=== PATIENT | female | born 1975 | race Caucasian/White ===

== ENCOUNTER 2017-05-06 18:02 | Emergency (ER) | payer OTHER ==
[~2017-05-06] VITALS: Ht 160 cm; Wt 115.0 kg
[~2017-05-06 18:02] MED LIST: CIPR750T10 PO; MEDR10 PO; METO10TA PO; PHEN12.5 PO; PROT40TA PO; Z.0.BCPILL PO; ZOFR4TAB3 SL
[2017-05-06 18:07] VITALS: BP 147/89; PULSE 84; RESP 20; TEMP 98.7; O2SAT 99
--- NOTE | 2017-05-06 18:21 | PD ---
Physical Exam Date Seen by Provider: May 06, 2017 Time Seen by Provider: 18:19 Data Data Last Documented VS Vital Signs Date Time Temp Pulse Resp B/P (MAP) Pulse Ox O2 Delivery O2 Flow Rate FiO2 05/06/17 18:07 98.7 84 20 147/89 (108) 99 Room Air MDM Supervised Visit with TIAN: No Narrative Course 42 YO F with PMH of MRSA with complaint of swelling, pain and redness under the neck x 3 days. ++ F/C/ N. Tried to squeeze the wounds at home. Vitals reviewed. Patient seen in triage, awaiting bed placement. Cony Elias May 06, 2017 18:21
[2017-05-06] MEDS ORDERED: ONDANSETRON HCL 4 MG/2 ML VIAL IV ONE (19:00)
[2017-05-06] MEDS ORDERED: MORPHINE SULFATE 8 MG/ML INJ IV PUSH ONE (19:00)
--- NOTE | 2017-05-06 19:32 | PD ---
HPI Chief Complaint: Skin Problem Time Seen by Provider: 18:50 Travel History International Travel<30 days: No Contact w/Intl Traveler<30days: No Traveled to known affect area: No History of Present Illness HPI Patient is a 42-year-old female presenting to emergency for evaluation of a skin infection to her neck. Patient states that she noticed it with 2 small pimples to her chin/neck, a cup progressively larger more swollen and then a third area erupted to her left lower jaw. Patient states it's painful reporting her pain as a 9 and 10. She states it's throbbing and aching in nature. Patient reports that she shaves her chin because she has a hormone abnormality and thinks this is what caused the initial abscesses. She denies any documented fevers but has felt chills and has had sweats. She has also felt nauseated has vomited several times. Patient reports a history of irritable bowel, anxiety, gastroparesis, cyclic vomiting syndrome. She is followed by Dr. Angel for her GI issues. PFSH Past Medical History Anemia: Yes Anxiety: Yes Endocrine: Yes Gastrointestinal Disorders: Yes (gastritis, gastroparesis, cyclic vomiting syndrome, irritable bowel) GERD: Yes Immunizations Current: Yes ?: Not Social History Alcohol Use: No Tobacco Use: No Substance Use: No Allergies-Medications (Allergen,Severity, Reaction): Coded Allergies: sulfamethoxazole (Unverified Allergy, Unknown, 04/11/17) trimethoprim (Unverified Allergy, Unknown, 04/11/17) Reported Meds & Prescriptions Reported Meds & Active Scripts Active Reglan (Metoclopramide HCl) 10 Mg Tab 10 Mg PO Q6H PRN NAUSEA AND VOMITING Provera 10 Mg Tab (Medroxyprogesterone Acetate) 10 Mg Tab 10 Mg PO DAILY 14 Days Ciprofloxacin 750 Mg Tab (Ciprofloxacin) 750 Mg Tab 750 Mg PO BID 7 Days Zofran ODT (Ondansetron HCl) 4 Mg Tab 4 Mg SL Q6H PRN FOR NAUSEA/VOMITING Phenergan (Promethazine HCl) 12.5 Mg Tab 12.5 Mg PO Q6 PRN FOR NAUSEA Zofran ODT (Ondansetron HCl) 4 Mg Tab 4 Mg SL Q6 FOR NAUSEA/VOMITING Reported Reglan (Metoclopramide HCl) 10 Mg Tab 10 Mg PO QID Protonix (Pantoprazole Sodium) 40 Mg Tab 40 Mg PO DAILY Control Pills (Miscellaneous Medication) Tab 1 Tab PO DAILY Review of Systems Except as stated in HPI: all other systems reviewed are Neg General / Constitutional: Positive: Fever, Chills Gastrointestinal: Positive: Nausea, Vomiting Skin: Positive Rash, Positive Lumps, Positive Change in Pigmentation, Positive Lesions Physical Exam Narrative GENERAL: Obese, well-developed, alert female. SKIN: Warm and dry.10x7cm area of induration to left lower cheek/jaw, moderately tender to palpation, no fluctuance noted, mildly erythematous. There are 2 additional areas of erythema and induration to neck measuring 3 x 3 cm. HEAD: Atraumatic. Normocephalic. EYES: Pupils equal and round. No scleral icterus. No injection or drainage. ENT: No nasal bleeding or discharge. Mucous membranes pink and moist. NECK: Trachea midline. No JVD. CARDIOVASCULAR: Regular rate and rhythm. RESPIRATORY: No accessory muscle use. Clear to auscultation. Breath sounds equal bilaterally. GASTROINTESTINAL: Abdomen soft, non-tender, nondistended. Hepatic and splenic margins not palpable. MUSCULOSKELETAL: Extremities without clubbing, cyanosis, or edema. No obvious deformities. NEUROLOGICAL: Awake and alert. No obvious cranial nerve deficits. Motor grossly within normal limits. Five out of 5 muscle strength in the arms and legs. Normal speech. PSYCHIATRIC: Appropriate mood and affect; insight and judgment normal. Data Data Last Documented VS Vital Signs Date Time Temp Pulse Resp B/P (MAP) Pulse Ox O2 Delivery O2 Flow Rate FiO2 05/06/17 19:30 98 05/06/17 18:07 98.7 84 20 147/89 (108) Room Air Orders Orders Complete Blood Count With Diff (05/06/17 18:57) Comprehensive Metabolic Panel (05/06/17 18:57) Lactic Acid Sepsis Protocol (05/06/17 18:57) Blood Culture (05/06/17 18:57) Wound Culture And Gram Stain (05/06/17 18:57) Blood Glucose (05/06/17 18:57) Ecg Monitoring (05/06/17 18:57) Iv Access Insert/Monitor (05/06/17 18:57) Oximetry (05/06/17 18:57) Oxygen Administration (05/06/17 18:57) Morphine Inj (Morphine Inj) (05/06/17 19:00) Ondansetron Inj (Zofran Inj) (05/06/17 19:00) Ct Facial Bones W Iv Contrast (05/06/17 ) Ed Urine Pregnancytest Poc (05/06/17 19:14) Ketorolac Inj (Toradol Inj) (05/06/17 20:00) Prochlorperazine Inj (Compazine Inj) (05/06/17 20:00) Urinalysis - C+S If Indicated (05/06/17 20:01) Potassium Chlor 20 Meq Premix (Kcl 20 Me (05/06/17 20:30) Potassium Chloride (Kcl) (05/06/17 20:30) Iohexol 350 Inj (Omnipaque 350 Inj) (05/06/17 20:28) Clindamycin Inj (Cleocin Inj) (05/06/17 21:00) Sodium Chlor 0.9% 1000 Ml Inj (Ns 1000 M (05/06/17 21:00) Urine Culture (05/06/17 20:10) Ceftriaxone Inj (Rocephin Inj) (05/06/17 21:15) Admit Order (Ed Use Only) (05/06/17 21:29) Labs Laboratory Tests Test 05/06/17 19:30 05/06/17 20:10 White Blood Count 19.5 TH/MM3 Red Blood Count 5.12 MIL/MM3 Hemoglobin 14.9 GM/DL Hematocrit 43.4 % Mean Corpuscular Volume 84.7 FL Mean Corpuscular Hemoglobin 29.1 PG Mean Corpuscular Hemoglobin Concent 34.4 % Red Cell Distribution Width 13.6 % Platelet Count 258 TH/MM3 Mean Platelet Volume 9.0 FL Neutrophils (%) (Auto) 84.9 % Lymphocytes (%) (Auto) 8.7 % Monocytes (%) (Auto) 6.1 % Eosinophils (%) (Auto) 0.0 % Basophils (%) (Auto) 0.3 % Neutrophils # (Auto) 16.6 TH/MM3 Lymphocytes # (Auto) 1.7 TH/MM3 Monocytes # (Auto) 1.2 TH/MM3 Eosinophils # (Auto) 0.0 TH/MM3 Basophils # (Auto) 0.1 TH/MM3 CBC Comment DIFF FINAL Differential Comment Blood Urea Nitrogen 18 MG/DL Creatinine 0.64 MG/DL Random Glucose 127 MG/DL Total Protein 8.6 GM/DL Albumin 4.0 GM/DL Calcium Level 9.4 MG/DL Alkaline Phosphatase 93 U/L Aspartate Amino Transf (AST/SGOT) 42 U/L Alanine Aminotransferase (ALT/SGPT) 77 U/L Total Bilirubin 1.2 MG/DL Sodium Level 133 MEQ/L Potassium Level 2.8 MEQ/L Chloride Level 96 MEQ/L Carbon Dioxide Level 22.0 MEQ/L Anion Gap 15 MEQ/L Estimat Glomerular Filtration Rate 102 ML/MIN Lactic Acid Level 1.2 mmol/L Urine Color YELLOW Urine Turbidity HAZY Urine pH 6.5 Urine Specific [place] 1.033 Urine Protein 300 mg/dL Urine Glucose (UA) NEG mg/dL Urine Ketones 150 mg/dL Urine Occult Blood MOD Urine Nitrite NEG Urine Bilirubin NEG Urine Urobilinogen 4.0 MG/DL Urine Leukocyte Esterase SMALL Urine RBC 14 /hpf Urine WBC 12 /hpf Urine Squamous Epithelial Cells 9 /hpf Urine Bacteria MANY /hpf Urine Mucus MANY /lpf Microscopic Urinalysis Comment CULTURE INDICATED MDM Medical Decision Making Medical Screen Exam Complete: Yes Emergency Medical Condition: Yes Interpretation(s) Last Impressions Maxillofacial CT 05/06/17 0000 Signed Impressions: Service Date/Time: Saturday, May 06, 2017 20:23 - CONCLUSION: 1. Cutaneous and subcutaneous inflammatory process along the right side of the mandible extending into the submental region characteristic of cellulitis. 2. Small nodular densities are identified in the inflammatory process which may represent small developing abscesses however large mature abscess is not identified. 3. No other significant abnormalities are Karlos Ramos MD Vital Signs Date Time Temp Pulse Resp B/P (MAP) Pulse Ox O2 Delivery O2 Flow Rate FiO2 05/06/17 18:07 98.7 84 20 147/89 (108) 99 Room Air Laboratory Tests Test 05/06/17 19:30 White Blood Count 19.5 TH/MM3 Red Blood Count 5.12 MIL/MM3 Hemoglobin 14.9 GM/DL Hematocrit 43.4 % Mean Corpuscular Volume 84.7 FL Mean Corpuscular Hemoglobin 29.1 PG Mean Corpuscular Hemoglobin Concent 34.4 % Red Cell Distribution Width 13.6 % Platelet Count 258 TH/MM3 Mean Platelet Volume 9.0 FL Neutrophils (%) (Auto) 84.9 % Lymphocytes (%) (Auto) 8.7 % Monocytes (%) (Auto) 6.1 % Eosinophils (%) (Auto) 0.0 % Basophils (%) (Auto) 0.3 % Neutrophils # (Auto) 16.6 TH/MM3 Lymphocytes # (Auto) 1.7 TH/MM3 Monocytes # (Auto) 1.2 TH/MM3 Eosinophils # (Auto) 0.0 TH/MM3 Basophils # (Auto) 0.1 TH/MM3 CBC Comment DIFF FINAL Differential Comment Blood Urea Nitrogen 18 MG/DL Creatinine 0.64 MG/DL Random Glucose 127 MG/DL Total Protein 8.6 GM/DL Albumin 4.0 GM/DL Calcium Level 9.4 MG/DL Alkaline Phosphatase 93 U/L Aspartate Amino Transf (AST/SGOT) 42 U/L Alanine Aminotransferase (ALT/SGPT) 77 U/L Total Bilirubin 1.2 MG/DL Sodium Level 133 MEQ/L Potassium Level 2.8 MEQ/L Chloride Level 96 MEQ/L Carbon Dioxide Level 22.0 MEQ/L Anion Gap 15 MEQ/L Estimat Glomerular Filtration Rate 102 ML/MIN Lactic Acid Level 1.2 mmol/L Differential Diagnosis Folliculitis versus impetigo versus abscess versus cellulitis versus other Narrative Course Patient is a 42-year-old female presenting for evaluation of facial abscesses. Patient's vital signs are stable, labs and imaging ordered and pending. Morphine and Zofran ordered for nausea and pain. Patient reports a history of cyclic vomiting syndrome as well as gastroparesis and irritable bowel syndrome. She has had nausea and vomiting since Monday, it preceded the skin infection. Zofran did not completely alleviate the nausea, Compazine was ordered. Patient requested more pain medication and she was given Toradol. CBC with white count of 19.5 with left shift, clindamycin 900 mg IV 1 dose ordered Chemistry with potassium 2.8, oral and IV replacement ordered Lactic acid 1.[address] read by the radiologist shows cutaneous and subcutaneous avoid her process along the right side of the mandible extending to the submental region characteristic of cellulitis. There are small nodular densities identified in the inflammatory process which may represent small developing abscesses however large immature abscess is not identified. Urinalysis consistent with a UTI, rocephin 1gram IV X 1 dose ordered. Pt will be admitted for IV abx and to monitor airway. Discussed plan of care with my attending. Dr. Poole accepted admit. Orders placed. Diagnosis Primary Impression: Facial cellulitis Additional Impressions: UTI (urinary tract infection) Qualified Codes: N39.0 - Urinary tract infection, site not specified; R31.9 - Hematuria, unspecified Hypokalemia Nausea and vomiting Qualified Codes: R11.2 - Nausea with vomiting, unspecified Admitting Information Admitting Physician Requests: Admit Condition: Stable Brenda Carbajal [employer] DES[employer] May 06, 2017 19:31
[2017-05-06 19:52] LABS: AUTOMATED NEUTROPHIL # 16.6 TH/MM3 (1.8-7.7); BASOPHIL # 0.1 TH/MM3 (0-0.2); BASOPHIL % 0.3 % (0.0-2.0); HEMATOCRIT 43.4 % (35.0-46.0); HEMO FLAGS DIFF FINAL; LYMPH % 8.7 % (9.0-44.0); LYMPHOCYTE # 1.7 TH/MM3 (1.0-4.8); MEAN CELL VOLUME 84.7 FL (80.0-100.0); MEAN CORPUSCULAR HEMOGLOBIN 29.1 PG (27.0-34.0); MEAN CORPUSCULAR HGB CONC 34.4 % (32.0-36.0); MONO % 6.1 % (0.0-8.0); NEUT % 84.9 % (16.0-70.0); PLATELET COUNT 258 TH/MM3 (150-450); RED BLOOD COUNT 5.12 MIL/MM3 (4.00-5.30); RED CELL DISTRIBUTION WIDTH 13.6 % (11.6-17.2); WHITE BLOOD COUNT 19.5 TH/MM3 (4.0-11.0)
[2017-05-06] MEDS ORDERED: PROCHLORPERAZINE INJ 10 MG/2 ML VIAL IV PUSH ONE (20:00)
[2017-05-06] MEDS ORDERED: KETOROLAC TROMETHAMINE 30 MG/ML (IVP) VIAL IV PUSH ONE (20:00)
[2017-05-06 20:10] LABS: ALKALINE PHOSPHATASE 93 U/L (45-117); ALT (GPT) 77 U/L (10-53); ANION GAP 15 MEQ/L (5-15); AST (GOT) 42 U/L (15-37); BLOOD UREA NITROGEN 18 MG/DL (7-18); CHLORIDE 96 MEQ/L (98-107); GLOMERULAR FILTRATION RATE 102 ML/MIN (>89); SODIUM (NA) 133 MEQ/L (136-145); TOTAL BILIRUBIN ADULT 1.2 MG/DL (0.2-1.0)
[2017-05-06 20:15] LABS: POTASSIUM 2.8 MEQ/L (3.5-5.1)
[2017-05-06] MEDS ORDERED: IOHEXOL 350 MG/ML 10 ML VIAL (for RAD DIAG) IVCONTRAST ONE (20:28)
[2017-05-06] MEDS ORDERED: POTASSIUM CHLOR 20 MEQ PREMIX 100 ML IV ONE (20:30)
[2017-05-06] MEDS ORDERED: POTASSIUM CHLORIDE 10 MEQ CONTROLLED RELEASE TAB PO ONE (20:30)
--- NOTE | 2017-05-06 20:45 | RADRPT ---
EXAM DATE/TIME: 05/06/2017 20:23 [facility] COMPARISON: No previous studies available for comparison. INDICATIONS : Right sided neck abscess x3 days with fever and nausea. IV CONTRAST: 70 cc Omnipaque 350 (iohexol) IV RADIATION DOSE: 55.90 CTDIvol (mGy) MEDICAL HISTORY : Gastroesophageal reflux disease. SURGICAL HISTORY : None. ENCOUNTER: Initial ACUITY: 3 days PAIN SCALE: 10/10 LOCATION: Right neck TECHNIQUE: Volumetric scanning of the facial bones was performed. Using automated exposure control and adjustme nt of the mA and/or kV according to patient size, radiation dose was kept as low as reasonably achiev able to obtain optimal diagnostic quality images. DICOM format image data is available electronicall y for review and comparison. FINDINGS: Soft tissue inflammatory process is identified along the right side of the mandible extending caudall y into the submental region. Small nodular densities ranging in size up to 11 mm are identified withi n the subcutaneous fat bilaterally. Submental lymph nodes ranging in size up to 8 mm are noted. Soft tissue structures of the neck are otherwise unremarkable. Sinuses are well aerated and clear. Osseous structures are intact CONCLUSION: 1. Cutaneous and subcutaneous inflammatory process along the right side of the mandible extending int o the submental region characteristic of cellulitis. 2. Small nodular densities are identified in the inflammatory process which may represent small devel oping abscesses however large mature abscess is not identified. 3. No other significant abnormalities are Karlos Ramos MD on May 06, 2017 at 20:38 Board Certified Radiologist. This report was verified electronically.
[2017-05-06] MEDS ORDERED: SODIUM CHLOR 0.9% 1000 ML INJ 1,000 ML IV ONE (21:00)
[2017-05-06] MEDS ORDERED: CLINDAMYCIN INJ 900 MG in SODIUM CHLORIDE 0.9% INJ 100 ML IV ONE (21:00)
[2017-05-06 21:03] LABS: BACTERIA, URINE MANY /hpf; BLOOD, URINE MOD (NEG); COMMENT (UR) CULTURE INDICATED; CULTURE IF INDICATED CULTURE INDICATED; GLUCOSE,URINE NEG (NEG); KETONE, URINE 150 mg/dL (NEG); MUCUS URINE MANY /lpf (OCC); NITRITE,URINE NEG (NEG); PH, URINE 6.5 (5.0-8.5); SQUAMOUS EPITHELIAL CELL URINE 9 /hpf (0-5); URINE COLOR YELLOW (YELLW/STRAW)
[2017-05-06] MEDS ORDERED: cefTRIAXone INJ 1,000 MG in SODIUM CHLORIDE 0.9% INJ 100 ML IV ONE (21:15)
[2017-05-06] MEDS ORDERED: OFFICE MEDICATION (21:34)
[2017-05-06] MEDS ORDERED: PROT40TA PO (21:34)
[2017-05-06] MEDS ORDERED: GABA600T PO (21:34)
[2017-05-06] MEDS ORDERED: PROZ40CA PO (21:34)
[2017-05-06] MEDS ORDERED: PROV10TA PO (21:34)
[2017-05-06] MEDS ORDERED: DICY10CA12 PO (21:34)
[2017-05-06] MEDS ORDERED: [UNRECOGNIZED DRUG - CODE] (21:34)
[2017-05-06] MEDS ORDERED: ONDA4TAB7 SL (21:34)
[2017-05-06] MEDS ORDERED: ACETAMINOPHEN/HYDROcodone 325 MG/7.5 MG TAB PO PRN (21:45)
[2017-05-06] MEDS ORDERED: ONDANSETRON HCL 4 MG/2 ML VIAL IV PUSH PRN (21:45)
[2017-05-06] MEDS ORDERED: VANCOMYCIN INJ 1,000 MG in SODIUM CHLOR 0.9% 250 ML INJ 250 ML IV ONE (21:45)
[2017-05-06] MEDS ORDERED: Vancomycin Consult Pharmacy 1 EA OTHER SCH (21:45)
[2017-05-06] MEDS ORDERED: MORPHINE SULFATE 4 MG/ML INJ IV PUSH PRN (21:45)
[2017-05-06] MEDS ORDERED: VANCOMYCIN INJ 1,500 MG in SODIUM CHLORID 0.9% 500 ML INJ 500 ML IV SCH (22:00)
[2017-05-07] MEDS ORDERED: PIPERACIL-TAZO 3.375 GM PREMIX 50 ML IV SCH (06:00)
[2017-05-08] MEDS ORDERED: PHARMACY ORDERED LAB ONE (09:45)
== END 2017-05-06 22:15 | disposition left against medical advice (07) ==
LOC: NEPC 18:02 → NEDA 21:31 → UNDOADMIN 21:31 → NEPC 22:15
DX: L03.211 Cellulitis of face (principal); N39.0 Urinary tract infection, site not specified; A49.01 Methicillin susceptible Staphylococcus aureus infection, unspecified site; E87.6 Hypokalemia; R11.2 Nausea with vomiting, unspecified; R21 Rash and other nonspecific skin eruption; K58.9 Irritable bowel syndrome, unspecified; D64.9 Anemia, unspecified; F41.9 Anxiety disorder, unspecified
CPT/HCPCS: 70487; 80053; 81001; 83605; 84703; 85025; 86403; 87040; 87070; 87086; 87186; 96374; 96375; 99285; J0696; J0780; J1885; J2270; J2405; J7030; Q9967; 87205

== ENCOUNTER 2017-05-10 23:39 | Emergency (ER) | payer OTHER ==
[~2017-05-10] VITALS: Ht 160 cm; Wt 113.5 kg
[~2017-05-10 23:39] MED LIST changes: -CIPR750T10 PO; +DICY10CA12 PO; +GABA600T PO; -MEDR10 PO; -METO10TA PO; +OFFICE MEDICATION; +ONDA4TAB7 SL; -PHEN12.5 PO; +PROV10TA PO; +PROZ40CA PO; -Z.0.BCPILL PO; -ZOFR4TAB3 SL; +[UNRECOGNIZED DRUG - CODE]
[2017-05-10 23:41] VITALS: BP 197/113; PULSE 86; RESP 20; TEMP 97.5; O2SAT 100
[2017-05-11 00:01] VITALS: BP 150/77; PULSE 80; RESP 24; O2SAT 97
[2017-05-11] MEDS ORDERED: SODIUM CHLOR 0.9% 1000 ML INJ 1,000 ML IV ONE (00:15)
[2017-05-11] MEDS ORDERED: PROCHLORPERAZINE INJ 10 MG/2 ML VIAL IV PUSH ONE (00:15)
[2017-05-11] MEDS ORDERED: IOHEXOL 350 MG/ML 10 ML VIAL (for RAD DIAG) IVCONTRAST ONE (00:26)
[2017-05-11 00:47] LABS: AUTOMATED NEUTROPHIL # 7.9 TH/MM3 (1.8-7.7); BASOPHIL # 0.1 TH/MM3 (0-0.2); BASOPHIL % 0.7 % (0.0-2.0); BLOOD, URINE MOD (NEG); COMMENT (UR) CULT NOT INDICATED; CULTURE IF INDICATED CULT NOT INDICATED; EOSINOPHIL % 0.2 % (0.0-4.0); GLUCOSE,URINE NEG (NEG); HEMATOCRIT 44.2 % (35.0-46.0); HEMO FLAGS DIFF FINAL; KETONE, URINE 40 mg/dL (NEG); LYMPH % 19.4 % (9.0-44.0); LYMPHOCYTE # 2.1 TH/MM3 (1.0-4.8); MEAN CELL VOLUME 84.9 FL (80.0-100.0); MEAN CORPUSCULAR HEMOGLOBIN 29.1 PG (27.0-34.0); MEAN CORPUSCULAR HGB CONC 34.3 % (32.0-36.0); MONO % 4.7 % (0.0-8.0); MUCUS URINE FEW /lpf (OCC); NITRITE,URINE NEG (NEG); PH, URINE 6.5 (5.0-8.5); PLATELET COUNT 284 TH/MM3 (150-450); RED BLOOD COUNT 5.21 MIL/MM3 (4.00-5.30); RED CELL DISTRIBUTION WIDTH 13.5 % (11.6-17.2); SQUAMOUS EPITHELIAL CELL URINE 21 /hpf (0-5); URINE COLOR YELLOW (YELLW/STRAW); WHITE BLOOD COUNT 10.6 TH/MM3 (4.0-11.0)
--- NOTE | 2017-05-11 00:51 | RADRPT ---
EXAM DATE/TIME: 05/11/2017 00:25 [facility] COMPARISON: CT FACIAL BONES W CONTRAST, May 06, 2017, 20:23. INDICATIONS : Right sided neck abscess for one week with fever and nausea. IV CONTRAST: 95 cc Omnipaque 350 (iohexol) IV RADIATION DOSE: 50.26 CTDIvol (mGy) MEDICAL HISTORY : None SURGICAL HISTORY : None. ENCOUNTER: Initial ACUITY: 1 week PAIN SCALE: 8/10 LOCATION: Right facial TECHNIQUE: Volumetric scanning of the facial bones was performed. Using automated exposure control and adjustme nt of the mA and/or kV according to patient size, radiation dose was kept as low as reasonably achiev able to obtain optimal diagnostic quality images. DICOM format image data is available electronicall y for review and comparison. FINDINGS: ORBITS: The orbital and infraorbital osseous structures are intact. The retroconal structures have a normal configuration. No radiopaque foreign bodies are seen. NASAL BONE: The nasal bone and maxillary spine are intact ZYGOMATIC ARCHES: Symmetric without evidence of fracture. SINUSES: The maxillary, ethmoid and frontal sinuses are intact. No air-fluid levels seen. NASAL CAVITY: The nasal septum is intact and midline. The lacrimal ducts are intact. SOFT TISSUES: Patchy areas of stranding adjacent to the right mandible and in the submental distribution of the sub cutaneous tissues are again present with nodular like densities actually showing interval increase in size from the prior. These may represent developing abscesses. INTRACRANIAL: No intracranial air seen. CRIBIFORM PLATE: Grossly intact. CONCLUSION: 1. Subcutaneous cellulitis adjacent to the right side of the mandible and extending into the submenta l region bilaterally. 2. Regional nodular lesions are low density and may represent developing abscesses. These are actuall y larger when compared to prior exam suggesting either nonresponsive or noncompliance with antibiotic therapy. Largest area in the left submental region measures 1.6 cm in diameter. Deep tissues of the neck remain radiographically intact. Mitchell Paz MD on May 11, 2017 at 0:44 Board Certified Radiologist. This report was verified electronically.
[2017-05-11 01:12] LABS: ALKALINE PHOSPHATASE 82 U/L (45-117); TOTAL BILIRUBIN ADULT 0.9 MG/DL (0.2-1.0)
[2017-05-11 01:13] LABS: ALT (GPT) 44 U/L (10-53); ANION GAP 13 MEQ/L (5-15); AST (GOT) 31 U/L (15-37); BICARBONATE 23.9 MEQ/L (21.0-32.0); BLOOD UREA NITROGEN 12 MG/DL (7-18); CHLORIDE 102 MEQ/L (98-107); GLOMERULAR FILTRATION RATE 70 ML/MIN (>89); POTASSIUM 3.3 MEQ/L (3.5-5.1); SODIUM (NA) 139 MEQ/L (136-145)
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
== END 2017-05-11 02:09 | disposition left against medical advice (07) ==
LOC: NEPC 23:39
DX: R11.2 Nausea with vomiting, unspecified (principal); L02.11 Cutaneous abscess of neck
CPT/HCPCS: 70487; 80053; 81001; 83690; 85025; 96374; 99285; J0780; J7030; Q9967